=== PATIENT | male | born 1955 | race Caucasian/White ===

== ENCOUNTER 2021-10-04 06:04 | Day surgery (SDC) | payer MEDICARE, BC ==
[~2021-10-04] VITALS: Ht 180.3 cm; Wt 113.0 kg
[~2021-10-04 06:04] MED LIST: DOXA4; MECL25 PO; MULVITMIND; OLME20 PO; SERT100; SERT50; TAMS.4ER PO; TOCO400
--- NOTE | 2021-10-04 06:35 | NUR ---
PT ARRIVES WITH MALENA. Ambulatory in Day Surgery History, Chart, Medications and Allergies reviewed before start of procedure. Lungs clear T/O to Auscultation. Patient confirms NPO status and agrees with scheduled surgery. Pre-Op teaching done. Pt verbalizes understanding. Patient States Post-Procedure ride home has been arranged.
--- NOTE | 2021-10-04 10:40 | NUR ---
DRESSING C/D/I. Discharge instructions reviewed with patient. Patient verbalizes understanding. Copy given to patient to take home. RX GIVEN TO . Discharged via wheelchair to private car for ride home.
--- NOTE | 2021-10-04 10:50 | NUR ---
10/04/21 1050 Barrett Sandoval D/Nikunj BEFORE PATIENT EXTUBATION. APPROX 150CC OF YELLOW CLEAR URINE.
== END 2021-10-04 10:40 | disposition home or self-care (01) ==
LOC: ORSCMMR 06:04
PROVIDERS: Surgery
PROC: 0WQF0ZZ Repair Abdominal Wall, Open Approach (ICD-10-PCS; principal; 2021-10-04 07:30)
PROC: 0YU54JZ Supplement Right Inguinal Region with Synthetic Substitute, Percutaneous Endoscopic Approach (ICD-10-PCS; principal; 2021-10-04 07:30)
PROC: 8E0W4CZ Robotic Assisted Procedure of Trunk Region, Percutaneous Endoscopic Approach (ICD-10-PCS; principal; 2021-10-04 07:30)
DX: K40.90 Unilateral inguinal hernia, without obstruction or gangrene, not specified as recurrent (principal); K42.9 Umbilical hernia without obstruction or gangrene; I10 Essential (primary) hypertension; G47.33 Obstructive sleep apnea (adult) (pediatric); E66.9 Obesity, unspecified; Z68.34 Body mass index [BMI] 34.0-34.9, adult; Z79.899 Other long term (current) drug therapy; Z87.891 Personal history of nicotine dependence
CPT/HCPCS: 49650; 49585; S2900; A9270; C1781; J0171; J0690; J1885; J2250; J2704; J3010; J7120

== ENCOUNTER 2022-11-27 12:44 | Day surgery (SDC) | payer MEDICARE, BC ==
[~2022-11-27] VITALS: Ht 180.3 cm; Wt 109.3 kg
[2022-11-27] MEDS ORDERED: TADA10TA (12:54)
[2022-11-27] MEDS ORDERED: DOCU100 (12:54)
[2022-11-27 15:20] VITALS: BP 147/89
== END 2022-11-27 15:19 | disposition home or self-care (01) ==
LOC: ORSCSDS 12:44
PROVIDERS: Surgery
PROC: 0DBP8ZX Excision of Rectum, Via Natural or Artificial Opening Endoscopic, Diagnostic (ICD-10-PCS; principal; 2022-11-27 14:00)
PROC: 0DBK8ZX Excision of Ascending Colon, Via Natural or Artificial Opening Endoscopic, Diagnostic (ICD-10-PCS; principal; 2022-11-27 14:00)
PROC: 0DBN8ZX Excision of Sigmoid Colon, Via Natural or Artificial Opening Endoscopic, Diagnostic (ICD-10-PCS; principal; 2022-11-27 14:00)
PROC: 0DBH8ZX Excision of Cecum, Via Natural or Artificial Opening Endoscopic, Diagnostic (ICD-10-PCS; principal; 2022-11-27 14:00)
DX: Z12.11 Encounter for screening for malignant neoplasm of colon (principal); D12.0 Benign neoplasm of cecum; D12.2 Benign neoplasm of ascending colon; K63.5 Polyp of colon; D12.8 Benign neoplasm of rectum; K62.1 Rectal polyp; Z87.891 Personal history of nicotine dependence; Z85.46 Personal history of malignant neoplasm of prostate; G47.33 Obstructive sleep apnea (adult) (pediatric); I10 Essential (primary) hypertension; Z79.899 Other long term (current) drug therapy
CPT/HCPCS: 88305; J2001; J2704; J7120

== ENCOUNTER 2024-12-01 13:37 | Day surgery (SDC) | payer MEDICARE, BC ==
[~2024-12-01] VITALS: Ht 180.3 cm; Wt 107.2 kg
[~2024-12-01 13:37] MED LIST changes: +Atropine Sulfate 0.1 MG/ML 10ML SYR ONE; +DOCU100; +Glycopyrrolate 0.2 MG/ML 1MLVIAL ONE; +Lactated Ringer's 1,000 ML IV ONE; +Lidocaine 2% 5 ML SDV ONE; +Lidocaine HCl/Pf 1% 5 ML VIAL ONE; +Methylene Blue 1% 100 MG/10 ML VIAL ONE; +Ondansetron HCl 2 MG / ML 2ML Vial ONE; +TADA10TA; +ePHEDrine Sulfate 50 MG/ML 1ML Injection ONE
[2024-12-01] MEDS ORDERED: OLMESARTAN-HCT1 EAC4 (13:53)
[2024-12-01] MEDS ORDERED: TAMS.4ER (13:53)
[2024-12-01] MEDS ORDERED: Lactated Ringer's 1,000 ML IV ONE (14:36)
[2024-12-01] MEDS ORDERED: propofoL 50 ML IV ONE (14:44)
[2024-12-01 15:35] VITALS: BP 112/68
== END 2024-12-01 15:40 | disposition home or self-care (01) ==
LOC: ORSCSDS 13:37
PROVIDERS: Surgery
PROC: 0DBH8ZX Excision of Cecum, Via Natural or Artificial Opening Endoscopic, Diagnostic (ICD-10-PCS; principal; 2024-12-01 15:00)
DX: Z12.11 Encounter for screening for malignant neoplasm of colon (principal); Z86.0101 Personal history of adenomatous and serrated colon polyps; D12.0 Benign neoplasm of cecum; F41.8 Other specified anxiety disorders; N40.0 Benign prostatic hyperplasia without lower urinary tract symptoms; Z87.891 Personal history of nicotine dependence; I10 Essential (primary) hypertension; G47.33 Obstructive sleep apnea (adult) (pediatric); Z79.899 Other long term (current) drug therapy; Z79.82 Long term (current) use of aspirin
CPT/HCPCS: 88305; J0461; J2003; J2405; J2704; J7120; Q9968